=== PATIENT | female | born 1925 | race Caucasian/White ===

== ENCOUNTER 2016-11-23 16:44 | Inpatient (IN) ==
[2016-11-23 17:32] LABS: BASO% 0.2 % (0.0-0.8); EOS% 2.1 % (0.0-10.0); HEMATOCRIT 36.4 % (37.0-47.0); HEMOGLOBIN 11.4 g/dL (12.0-16.0); IMM GRAN# 0.03 X1000 (0.0-0.04); IMM GRAN% 0.2 % (0.0-0.5); LYMPH# 10.41 X1000 (1.2-3.4); MCH 30.8 PG (27-31); MCHC 31.3 g/dL (33-37); MCV 98.4 FL (81-99); MONO# 1.05 X1000 (0.11-0.59); MONO% 5.4 % (1.7-9.3); MPV 10.3 FL (7.4-10.4); NEUT% 38.1 % (42.2-75.2); PLT 175 X1000 (130-400)
[2016-11-23 17:39] LABS: MANUAL DIFF NEEDED? NO
[2016-11-23 17:49] LABS: INR 1.04; PTT 30.4 Seconds (22.0-36.0)
--- NOTE | 2016-11-23 17:57 | Diag Imaging Result Document ---
PROCEDURE NAME: CHEST-PORTABLE - 11/23/2016 PORTABLE CHEST: COMPARISON: Compared to 01/21/2014. The lungs are hyperexpanded. The heart is not enlarged. The pulmonary vessels are small. No pneumonia. No pleural effusions identified. Longstanding arthritic changes to each shoulder. IMPRESSION: Emphysema.
--- NOTE | 2016-11-23 18:01 | PROVIDER DOCUMENTATION ---
This chart was entered by Homa Rubio Scribe, acting as scribe for Cinthia Matthews MD. HPI-Cardiac General - General Stated Complaint: FLUTTERING CHEST Time Seen by Provider: 11/23/16 16:54 Source: patient Allergies/Adverse Reactions: Patient Allergies Allergy/AdvReac Type Severity Reaction Status Date / Time latex Allergy RASH Verified 01/17/14 19:48 Penicillins Allergy RASH Verified 01/17/14 19:48 Home Medications: Home Medication List Medication Instructions Recorded Confirmed Last Taken Type Celecoxib [Celebrex] 200 mg PO DAILY 01/17/14 01/17/14 01/16/14 21:00 History Furosemide 20 mg PO TID 01/17/14 01/17/14 01/16/14 18:00 History Meclizine HCl [Motion Sickness 25 mg PO PRN PRN 01/17/14 01/17/14 01/16/14 18: 00 History Relief] Metoprolol [Lopressor] 50 mg PO BID 01/17/14 01/17/14 01/17/14 11:15 History Omeprazole 20 mg PO DAILY 01/17/14 01/17/14 01/16/14 21:00 History Potassium Chloride 20 meq PO DAILY 01/17/14 01/17/14 01/16/14 08:00 History Pravastatin Sodium 20 mg PO DAILY 01/17/14 01/17/14 01/16/14 21:00 History - History of Present Illness-Cardiac Nature of Presenting Problem: Pt is a 89 yof who came to the ED with a cc of heart palpitations. Pt reports she felt her heart racing, pt states that this has happened last year. Pt has a hx of colon cancer and a colon resection with no chemo. While pt was examined the heart rate went form 103 to 50 then a 2 second pause, during this times she had no LOC, chest pain, or SOB. Quality of Pain: reports: none Onset/Duration: just prior to arrival Timing: still present Modifying Factors: improves with: nothing Palpitation Quality: fast/pounding heart beat Nitro Today/Relief: reports: no nitro taken today Aspirin Treatment Today: reports: no aspirin today Prior Chest Pain/Cardiac Workup: reports: no prior chest pain Associated Symptoms: reports: denies symptoms Similar Symptoms Previously?: Yes Recently Seen Here or By Another Healthcare Provider: No Review of Systems - Adult - REVIEW OF SYSTEMS - ADULT Constitutional: denies: chills, fever Eyes: reports: no symptoms reported Ears, Nose, Mouth & Throat: denies: sinus problem, mouth/dental pain Cardiovascular: reports: palpitations. denies: chest pain, irregular heart rate , orthopnea Respiratory: reports: no symptoms reported Gastrointestinal: denies: diarrhea, nausea, vomiting Genitourinary: reports: no symptoms reported Musculoskeletal: reports: no symptoms reported Integumentary: reports: no symptoms reported Neurological: reports: no symptoms reported Psychiatric: reports: no symptoms reported Endocrine: reports: no symptoms reported Hematologic/Lymphatic: reports: no symptoms reported Allergic/Immunologic: reports: no symptoms reported All Other Systems: Reviewed and Negative Past History - Adult - PAST MEDICAL HISTORY-ADULT Review of Records: reports: Nursing Assessment Review Major Childhood Illnesses: reports: denies history Cardiovascular: reports: denies history Respiratory: reports: denies history Gastrointestinal: reports: denies history Obstetrical/Gynecological: reports: denies history Genitourinary: reports: denies history Musculoskeletal: reports: denies history Neurological: reports: denies history Endocrine/Immune: reports: cancer Other Conditions: reports: denies history - IMMUNIZATION STATUS Childhood Immunizations: See Nurse Assessment Flu Vaccine: See Nurse Assessment - FAMILY HISTORY Family History: reviewed, not pertinent Physical Exam-General - PHYSICAL EXAM-ADULT Initial Vital Signs Reviewed: Yes - CONSTITUTIONAL General Appearance: appears well, alert - EYES Eyes: PERRL/EOMI - HEAD, EARS, NOSE, MOUTH & THROAT HENMT: normocephalic/atraumatic, moist mucous membranes - NECK Neck: normal inspection - RESPIRATORY Respiratory: chest non-tender, lungs clear, normal breath sounds - CARDIOVASCULAR Cardiovascular: bradycardia, tachycardia, other (Dr. Matthews saw on the monitor that the pt heart rate was 103, then listened to the heart rate and went down to 50.) - GASTROINTESTINAL (ABDOMEN) Abdominal Exam: normal bowel sounds, non tender, soft - MUSCULOSKELETAL Back Exam: normal inspection, no vertebral tenderness Extremity: normal range of motion, non-tender, normal inspection - SKIN Integumentary: normal color, normal turgor, warm/dry - NEUROLOGIC Neurologic: grossly normal, no motor/sensory deficits - PSYCHIATRIC Psych/Mental Status: normal mood/affect, normal thought content, normal thought process, oriented x 3 Progress - PLAN OF CARE/RESULTS Progress/Plan/Lab Results: Vital Signs - 8 hr 11/23/16 16:48 11/23/16 17:38 11/23/16 17:48 Temperature 98.1 F Pulse Rate 58 L 108 H 110 H Respiratory Rate 19 18 22 Blood Pressure 161/102 161/102 154/94 O2 Sat by Pulse Oximetry 95 95 Laboratory Results - last 24 hr 11/23/16 11/23/16 16:48 16:48 WBC 19.28 H RBC 3.70 L Hgb 11.4 L Hct 36.4 L MCV 98.4 MCH 30.8 MCHC 31.3 L RDW Std Deviation 13.8 Plt Count 175 MPV 10.3 Immature Gran % (Auto) 0.2 Neut % (Auto) 38.1 L Lymph % (Auto) 54.0 H Crowley % (Auto) 5.4 Eos % (Auto) 2.1 Baso % (Auto) 0.2 Immature Gran # (Auto) 0.03 Neut # (Auto) 7.35 H Lymph # (Auto) 10.41 H Crowley # (Auto) 1.05 H Eos # (Auto) 0.40 Baso # (Auto) 0.04 Segmented Neutrophils Not Reportable PT 11.0 INR 1.04 PTT (Actin FS) 30.4 Orders Category Date Time Status Cardiac Monitoring DIRECTED Care 11/23/16 17:03 Active Saline Loc NOW Care 11/23/16 17:03 Active CHEST-PORTABLE [RAD] Stat Exams 11/23/16 17:06 Taken CBC WITH ELECTRONIC DIFF [HEME] Stat Lab 11/23/16 16:48 Completed CK PROFILE [SP CHEM] Stat Lab 11/23/16 16:48 Received COMPREHENSIVE METABOLIC PANEL [CHEM] Stat Lab 11/23/16 16:48 Received D-DIMER [CHEM] Stat Lab 11/23/16 16:48 Received MAGNESIUM [CHEM] Stat Lab 11/23/16 16:48 Received PRO B-NATRIURETIC PEPTIDE Stat Lab 11/23/16 16:48 Received PROTIME WITH INR [COAG] Stat Lab 11/23/16 16:48 Completed PTT [COAG] Stat Lab 11/23/16 16:48 Completed TROPONIN T Stat Lab 11/23/16 16:48 Received EKG [EKG] Stat Ther 11/23/16 17:03 Ordered Transfer/Admit Order [TRANSFER] Routine Transfer 11/23/16 17:49 Ordered Result Diagrams: 11/23/16 16:48 - EKG 1 Time of EKG reading by physician:: 16:49 EKG Read and Signed by:: Cinthia Matthews EKG Interpretation (*Must complete 3 of following elements*): Abnormal Rate: 103 (ST and T wave abnormality, consider inferior ischemia) Rhythm: accelerated junctional rhythm - CONSULTS/PCP/HOSPITALIST Notification #1 *Consult/PCP/Hospitalist*: Dr. Spicer Time Discussed: 17:52 (will look at pt labs and admit to [facility]) Consult Disposition: Admit Departure - Departure Time of Disposition Decision: 17:59 DIAGNOSIS: Sick sinus syndrome Disposition: ADMITTED INPATIENT 09 Certified Medical Emergency: Emergent Condition: Critical - Critical Care Note This patient required my direct personal management.: Yes Total Time (mins): 32 Critical Care Statement: This patient required my direct personal management to treat or rule out processes, the absence of which, could potentiallly result in sudden, clinically significant life or limb threatening deterioration. This chart was documented by the indicated scribe, (Homa Rubio Scribe) and accurately reflects the services I performed and decisions made by me, Cinthia Matthews MD, as attested by the provider's signature.
[2016-11-23 18:09] LABS: ALBUMIN 3.6 g/dL (3.5-5.0); MAGNESIUM 2.2 mg/dL (1.5-2.7); POTASSIUM 3.9 mmol/L (3.5-5.1); TOTAL BILIRUBIN 0.56 mg/dL (0.20-1.00); TOTAL PROTEIN 6.2 g/dL (6.3-8.3)
[2016-11-23] MEDS ORDERED: ZOFRAN IV PRN (18:41)
[2016-11-23] MEDS ORDERED: MORPHINE IV PRN (18:41)
[2016-11-23 18:52] LABS: URINE CULTURE NEEDED? NO; URINE MICRO REVIEW NEEDED? NO; URINE SOURCE CLEAN CATCH
[2016-11-23 18:55] LABS: BILIRUBIN URINE NEGATIVE (NEGATIVE); BLOOD URINE SMALL (NEGATIVE); COLOR STRAW; GLUCOSE URINE NEGATIVE (NEGATIVE); LEUKOCYTES URINE NEGATIVE (NEGATIVE); NITRITE URINE NEGATIVE (NEGATIVE); PROTEIN URINE NEGATIVE (NEGATIVE); SP GRAVITY URINE 1.007; TURBIDITY URINE CLEAR (CLEAR); UROBILINOGEN URINE NORMAL (NORMAL)
[2016-11-23 18:56] LABS: UR EPITHELIAL CELLS <10 /HPF (<10); URINE BACTERIA NEGATIVE /HPF; URINE RBC <10 /HPF (<10); URINE WBC <10 /HPF (<10)
[2016-11-23] MEDS ORDERED: SODIUM CHLORIDE 0.9% INJ SCH (19:15)
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
[2016-11-23] MEDS: PRAVACHOL PO SCH (20:52)
[2016-11-23] MEDS: LOVENOX SUBQ SCH (20:53)
[2016-11-23] MEDS: LOPRESSOR PO SCH (20:53)
[2016-11-23] MEDS: PROTONIX IV SCH (20:53)
[2016-11-23] MEDS ORDERED: LASIX PO SCH (21:00)
[2016-11-24 05:03] LABS: MANUAL DIFF NEEDED? NO
[2016-11-24 05:07] LABS: BASO% 0.3 % (0.0-0.8); EOS# 0.35 X1000 (0.0-0.7); EOS% 2.2 % (0.0-10.0); HEMATOCRIT 33.4 % (37.0-47.0); HEMOGLOBIN 10.6 g/dL (12.0-16.0); IMM GRAN# 0.02 X1000 (0.0-0.04); IMM GRAN% 0.1 % (0.0-0.5); LYMPH# 8.95 X1000 (1.2-3.4); MCH 31.1 PG (27-31); MCHC 31.7 g/dL (33-37); MCV 97.9 FL (81-99); MONO# 0.76 X1000 (0.11-0.59); MONO% 4.8 % (1.7-9.3); MPV 9.8 FL (7.4-10.4); NEUT% 36.6 % (42.2-75.2); PLT 139 X1000 (130-400); RBC 3.41 XMIL (4.2-5.4)
[2016-11-24 05:21] LABS: CALCIUM 9.2 mg/dL (8.8-10.2); MAGNESIUM 2.2 mg/dL (1.5-2.7); POTASSIUM 3.8 mmol/L (3.5-5.1)
[2016-11-24 05:29] LABS: FREE T4 1.01 ng/dL (0.93-1.70)
--- NOTE | 2016-11-24 06:36 | EKG Report ---
Test Performed on : 11/24/2016 06:06:33 AM Test Reason : cp Blood Pressure : / mmHG Vent. Rate : 058 BPM Atrial Rate : 053 BPM P-R Int : 000 ms QRS Dur : 076 ms QT Int : 472 ms P-R-T Axes : 077 037 074 degrees QTc Int : 463 ms Sinus bradycardia. with marked sinus arrhythmia. Otherwise normal ECG with 1st degree AV block. When compared with ECG of 23-NOV-2016 16:49, (Unconfirmed) Sinus rhythm. has replaced Junctional rhythm. Vent. rate has decreased BY 45 BPM T wave inversion no longer evident in Inferior leads Nonspecific T wave abnormality no longer evident in Lateral leads Confirmed by Norm CHAIDEZ, Felipe Jones ([id number]) on 11/24/2016 8:27:02 AM
--- NOTE | 2016-11-24 07:12 | EKG Report ---
Test Performed on : 11/23/2016 4:49:39 PM Test Reason : Chest Pain Blood Pressure : / mmHG Vent. Rate : 103 BPM Atrial Rate : 082 BPM P-R Int : 000 ms QRS Dur : 080 ms QT Int : 368 ms P-R-T Axes : 000 022 032 degrees QTc Int : 482 ms Accelerated Junctional rhythm. ST \T\ T wave abnormality, consider inferior ischemia Abnormal ECG When compared with ECG of 17-JAN-2014 10:47, Junctional rhythm. has replaced Sinus rhythm. Vent. rate has increased BY 46 BPM T wave inversion now evident in Inferior leads Nonspecific T wave abnormality now evident in Lateral leads Unconfirmed Result
[2016-11-24] MEDS: ASPIRIN EC PO SCH (09:38)
[2016-11-24] MEDS: KLOR-CON PO SCH (09:38)
[2016-11-24] MEDS: CELEBREX PO SCH (09:38)
--- NOTE | 2016-11-24 09:56 | PROGRESS NOTE ---
DATE: 11/24/2016 SUBJECTIVE: The patient denies of any complaints. No chest pain. No loss of consciousness. Wants to go home. clinical research monitor showed normal sinus with first-degree AV block. Twelve lead EKG showed a 1.5 second pause with junctional. REVIEW OF SYSTEMS: None reported. PHYSICAL EXAMINATION: Vital Signs: Stable, afebrile, pulse is 60. HEENT: Examination within normal limits. Bilateral cataracts and bilateral hearing aids present. Neck: Supple. No lymphadenopathy. Chest: Clear. Heart: Heart sounds are regular. Abdomen: Belly is soft, nontender. Extremities: No edema, cyanosis, or clubbing. INVESTIGATIONS: CBC: White cell count 15, hematocrit 33, platelets 139,000. SMA 7: Sodium 145, potassium 3.8, chloride 109, BUN 22, creatinine 1.1. Cardiac enzymes were negative. ProBNP was high. ASSESSMENT AND PLAN: 1. Sick sinus syndrome, junctional, intermittent atrial fibrillation, first-degree atrioventricular block, on metoprolol. Rule out structural heart disease. Elevated proBNP. Check the echocardiography and a chemical stress test. 2. Chronic lymphocytic leukemia, stable. 3. Deep venous thrombosis with Lovenox. 4. Hyperlipidemia, on pravastatin. 5. Mild azotemia. Stopped the Lasix. 6. Living will, [id number]. 7. We will discuss with the family and the fiction and nonfiction prose writer for possible pacemaker down the line. LEVEL OF DOCUMENTATION: 25 minutes. cc: Caleb Spicer MD
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
[2016-11-24] MEDS: LOPRESSOR PO SCH ×2 (10:49→20:51)
--- NOTE | 2016-11-24 11:55 | EKG Report ---
Test Performed on : 11/24/2016 09:04:48 AM Test Reason : sick sinus syndrome Blood Pressure : / mmHG Vent. Rate : 058 BPM Atrial Rate : 058 BPM P-R Int : 368 ms QRS Dur : 080 ms QT Int : 474 ms P-R-T Axes : 084 027 059 degrees QTc Int : 465 ms Sinus bradycardia. with 1st degree AV block. Otherwise normal ECG When compared with ECG of 24-NOV-2016 06:06, No significant change was found Confirmed by Felipe Zheng MD ([id number]) on 11/24/2016 7:58:41 PM
[2016-11-24] MEDS ORDERED: LEXISCAN ONE (12:19)
--- NOTE | 2016-11-24 14:40 | Diag Imaging Result Document ---
PROCEDURE NAME: MYOCARDIAL PERF SCAN, STR/REST - 11/24/2016 STUDY: Lexiscan Cardiolite Stress Test. FINDINGS: Lexiscan was infused per standard protocol. Baseline electrocardiogram revealed sinus bradycardia with first-degree AV block. There was no chest pain. Stress electrocardiogram was negative for ischemia. Normal response to Lexiscan infusion, following which 30.9 mCi of Cardiolite was injected, 10.7 mCi of Cardiolite was injected for the rest phase. Gated SPECT images were obtained in standard views. Images revealed significant GI indifference and chest wall attenuation. There is normal myocardial perfusion. Left ventricular ejection fraction by gated SPECT was 80%. Wall motion was normal. Left ventricular cavity size was normal. CONCLUSIONS: 1. No chest pain. 2. Negative Lexiscan stress electrocardiogram. 3. Normal myocardial perfusion. 4. Left ventricular ejection fraction 80%. Wall motion was normal. cc: MD Caleb Heath MD
--- NOTE | 2016-11-24 15:28 | ECHO REPORT ---
ORDER DATE: 11/23/2016 ECHOCARDIOGRAPHIC MEASUREMENTS: 1. Interventricular septum 0.9. 2. Left ventricular posterior wall 1.1. 3. Diastolic diameter 4.6. 4. Left atrium 3.9. 5. Aorta 3.6. FINDINGS: 1. Aortic valve leaflets were trileaflet, mildly sclerosed. 2. There is restriction of opening of the anterior mitral leaflet. Tricuspid valve was normal. Pulmonic valve was normal. There is left atrial enlargement. 3. Normal left ventricular cavity size. Estimated ejection fraction of 60%-65%. 4. Peak velocity across the aortic valve less than 2 m/sec. There is no aortic stenosis. There is trace aortic regurgitation. 5. Mitral valve area by pressure half time was 2.6 cm2. By pressure half time, with mean pressure gradient of 4 mmHg, there is mild mitral stenosis associated with moderate eccentric mitral regurgitation. 6. There is moderate tricuspid regurgitation. Peak velocity across the tricuspid valve was 3.7 m/sec. Pulmonary artery systolic pressure of 67 mmHg. There is pulmonary artery hypertension. 7. There is mild pulmonary regurgitation. CONCLUSIONS: 1. There is some mild mitral stenosis associated with moderate eccentric mitral regurgitation. 2. There is pulmonary arterial hypertension with moderate tricuspid regurgitation. 3. Left ventricular ejection fraction 65%. There is no pericardial effusion or obvious intracardiac mass or thrombus seen. cc: MD Caleb Heath MD
[2016-11-24] MEDS: PROTONIX IV SCH (19:14)
[2016-11-24] MEDS: LOVENOX SUBQ SCH (19:14)
[2016-11-24] MEDS: PRAVACHOL PO SCH (20:51)
[2016-11-25 07:56] VITALS: BP 150/44
[2016-11-25] MEDS: LOPRESSOR PO SCH (08:11)
[2016-11-25] MEDS: ASPIRIN EC PO SCH (08:11)
[2016-11-25] MEDS: CELEBREX PO SCH (08:11)
[2016-11-25] MEDS: KLOR-CON PO SCH (08:47)
--- NOTE | 2016-11-26 09:29 | DISCHARGE SUMMARY ---
ADMISSION DATE: 11/23/2016 DISCHARGE DATE: 11/25/2016 DISCHARGING DIAGNOSIS: Palpitations due to intermittent atrial flutter with sick sinus syndrome with pauses 1.5 second and first-degree AV block. SECONDARY DIAGNOSES: 1. Colon cancer stage III status post abdominoperineal resection by Dr. Bangura, in remission. 2. Diverticulosis. 3. Acid reflux disease. 4. Hyperlipidemia. 5. Hypertension. 6. Chronic lymphocytic leukemia. 7. Paroxysmal atrial fibrillation. 8. Deafness. 9. Osteoarthritis. CONSULTANTS: Dr. Byers. PROCEDURES: 1. Echocardiography report: Mild mitral stenosis. Moderate eccentric MR. pulmonary arterial hypertension based TR velocity. LV systolic function 65%. 2. Myocardial perfusion scan: No chest pain. Negative Lexiscan. Stress EKG. Normal myocardial perfusion. LV systolic function is normal. 3. Chest x-ray: Emphysema, stable. BRIEF HISTORY: Please see the H P that was done on 11/23/2016. In brief, she is an 89-year-old white female who was brought in by ambulance with palpitations. She has irregular heart. While she was in the ER she went in to 1.5 second pause and followed by sinus. She was admitted in [facility] for possible sick sinus syndrome. HOSPITAL COURSE: She was monitored in telemetry. She did not have any episodes of atrial fibrillation. She remained in normal sinus with first-degree AV block. She was ruled out for MT by serial cardiac enzymes. Further workup, echo, and stress test was pretty much stable with mild mitral stenosis. LABS: White cell count 15.9, hematocrit 33, platelets 139,000. SMA 7: Sodium 145, potassium 3.8, chloride 109, BUN 22, creatinine 1.1. Cardiac enzymes were normal. ProBNP 6,000. Normal thyroid function tests. Chest x-ray was stable. DISCHARGE MEDICATIONS: Metoprolol 50 p.o. b.i.d. Discontinue Lasix. Pravastatin 20 daily, Prilosec 20 daily, Celebrex 200 daily, aspirin 80 mg daily, meclizine as needed for motion sickness. DISCHARGE INSTRUCTIONS: 1. Will discuss about anticoagulation. 2. Needs a 30 day loop monitor. 3. Will follow up in my office, as well as Dr. Byers. cc: MD Dr. Zeeshan Brito
== END 2016-11-25 11:00 | disposition home health service (06) ==
LOC: ED 16:44 → 3S 18:07
PROVIDERS: ADMIT Internal Medicine; ATTEND Internal Medicine